=== PATIENT | female | born 1955 | race Two or more races ===

== ENCOUNTER 2018-02-16 21:56 | Emergency (ER) | payer OTHER, MEDICAID ==
[~2018-02-16] VITALS: Ht 167.6 cm; Wt 68.0 kg
[2018-02-16] MEDS ORDERED: LORAZEPAM 0.5 MG TABLET PO ONE (22:30)
[2018-02-16] MEDS ORDERED: IV NORMAL SALINE 1000 ML BAG IV ONE (22:30)
[2018-02-16] MEDS ORDERED: LORAZEPAM 1 MG TABLET ONE (22:43)
[2018-02-16] MEDS ORDERED: LORAZEPAM 0.5 MG TABLET ONE (22:44)
[2018-02-16 22:55] LABS: BASOPHILS % (AUTO) 0.9 % (0.0-2.0); EOSINOPHILS # (AUTO) 0.2 K/uL (0.0-0.7); EOSINOPHILS % (AUTO) 4.6 % (0.0-7.0); HEMATOCRIT 36.7 % (31.2-41.9); HEMOGLOBIN 12.3 g/dL (10.9-14.3); LYMPHOCYTES % (AUTO) 17.8 % (20.5-51.5); MEAN CORPUSCULAR HEMOGLOBIN 30.4 uug (24.7-32.8); MEAN CORPUSCULAR HGB CONC 33 g/dL (32.3-35.6); MEAN CORPUSCULAR VOLUME 90.8 fL (75.5-95.3); MONOCYTES # (AUTO) 0.4 K/uL (2.0-10.0); MONOCYTES % (AUTO) 6.5 % (0.0-11.0); NEUTROPHILS # (AUTO) 3.8 K/uL (1.8-8.9); NEUTROPHILS % (AUTO) 70.2 % (38.5-71.5); PLATELET COUNT (AUTO) 343 K/uL (179-408); RED BLOOD CELL COUNT(AUTO) 4.04 MIL/uL (3.63-4.92); WHITE BLOOD COUNT (AUTO) 5.4 K/uL (3.8-11.8)
[2018-02-16 23:09] LABS: ETHANOL 5 MG/DL (0-0)
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
[2018-02-16 23:30] LABS: ALANINE AMINOTRANSFERASE 20 U/L (14-59); ALKALINE PHOSPHATASE 177 U/L (50-136); ASPARTATE AMINOTRANSFERASE 22 U/L (15-37); BILIRUBIN,DIRECT 0.1 mg/dL (0.0-0.2); BILIRUBIN,TOTAL 0.3 mg/dL (0.2-1.0); CARBON DIOXIDE 27 mmol/L (21-32); CHLORIDE 94 mmol/L (98-107); CREATININE 0.6 mg/dL (0.6-1.3); GLUCOSE 156 mg/dL (74-106); POTASSIUM 3.3 mmol/L (3.5-5.1); TOTAL PROTEIN, SERUM 7.7 g/dL (6.4-8.2); UREA NITROGEN, BLOOD 13 mg/dL (7-18)
[2018-02-16 23:33] LABS: ACETAMINOPHEN < 2.0 ug/mL (10-30)
[2018-02-16 23:39] LABS: MAGNESIUM 1.6 mg/dL (1.8-2.4)
[2018-02-17] MEDS ORDERED: MAGNESIUM SULFATE 1 GM in IV DEXTROSE 5% 50 ML IV ONE ×2
[2018-02-17] MEDS ORDERED: MAGNESIUM SULFATE 1 GM/2 ML VIAL ONE (00:07)
--- NOTE | 2018-02-17 00:55 | NUR ---
PT SLEEPING IN BED. VSS. 1:1 SITTER AT BEDSIDE.
[2018-02-17 01:55] LABS: *BILIRUBIN,URIN NEGATIVE (NEGATIVE); *BLOOD, URINE Trace-intact (NEGATIVE); *CLARITY,URINE CLEAR (CLEAR); *COLOR,URINE YELLOW (YELLOW); *KETONES,URINE 1+ (NEGATIVE); *PROTEIN,URINE NEGATIVE (NEGATIVE); *UROBILINOGEN,URINE 0.2 E.U./dl (NORMAL); LEUKOCYTE ESTERASE ,URINE TRACE (NEGATIVE); NITRITE, URINE NEGATIVE (NEGATIVE); UGLUCOSE NEGATIVE (NEGATIVE)
[2018-02-17 02:10] LABS: *AMPHETAMINE, URINE POSITIVE (NEGATIVE); *BARBITURATE, URINE POSITIVE (NEGATIVE); *CANNABINOID, URINE NEGATIVE (NEGATIVE); *COCCAINE, URINE NEGATIVE (NEGATIVE); *OPIATE, URINE POSITIVE (NEGATIVE); *PHENCYCLIDINE SCREEN,URINE NEGATIVE (NEGATIVE); BACTERIA,URINE NONE SEEN /HPF (NONE SEEN); RBC,URINE 0-3 /HPF (0-3); SQUAMOUS EPITHELIAL CELL,UR FEW /HPF (NONE SEEN); TRANSITIONAL EPI CELLS,URINE FEW /LPF (NONE SEEN); WBC,URINE 0-3 /HPF (0-3)
[2018-02-17 02:11] LABS: MUCUS,URINE FEW /LPF (0-FEW)
--- NOTE | 2018-02-17 03:03 | NUR ---
SPOKE Saundra POWERS FROM [facility]. REQUESTED PT'S CHART TO BE FAXED TO [facility].
--- NOTE | 2018-02-17 03:08 | NUR ---
AWAITING CALL-BACK FROM [facility]'S FACILITY ASSIGNMENT FOR TRANSFER.
--- NOTE | 2018-02-17 04:20 | NUR ---
CALLED [facility] FIND HELPLINE RE PT'S TRANSFER REQUEST. WAS TOLD THE TRANSFER REQUEST IS STILL PENDING AND THEY WILL CALL ONCE THERE IS A CONFIRMATION. AWAITING CALL BACK.
--- NOTE | 2018-02-17 05:25 | NUR ---
SPOKE W/ [facility] FINDER REP RE PT'S TRANSFER STATUS - PT'S STATUS IS STILL PENDING W/ TWO DIFFERENT FACILITIES. AWAITING CALL BACK.
--- NOTE | 2018-02-17 05:45 | NUR ---
PT ASLEEP - AROUSES EASILY. MD AWARE OF PT'S RECENT VS, 170/95, HR 80, RR 18, SPO2 98%.
--- NOTE | 2018-02-17 06:50 | NUR ---
SPOKE W/ ABBEY FROM [facility] RE PT'S ADMISSION.
--- NOTE | 2018-02-17 07:14 | NUR ---
GAVE SHIFT REPORT TO JASPER ORTEGA.
--- NOTE | 2018-02-17 07:51 | NUR ---
[facility] provided for pt. pt eating with good apetite.
--- NOTE | 2018-02-17 08:33 | NUR ---
[facility] called. pt is going to [facility], accepting md is dr. lilly. report number [phone]. eta for transfer 60-90 minutes. called [facility] to give report got disconnected. will call again.
--- NOTE | 2018-02-17 09:47 | NUR ---
ambulance at bedside, called to give report again, was told by the nurse at [facility] that cannot be transfered because [facility] does not have the order fromn accepting physician. called back [facility], was transfered to [facility]. [facility] reconfirmed the transfer. called back [facility] x 3 to give report while ambulance waiting here to transfer the pt. the phone was picked up and disconnected ithout being able to give report. gave comprehensive report to ambulance crew, and provided the phone number for [facility] to call back for report.
--- NOTE | 2018-02-17 09:50 | NUR ---
pt transfered to [facility] via private ambulance in stable condition. pt able to walk in steady gait. er md medically cleared the pt including the vs.
== END 2018-02-17 09:55 | disposition short-term general hospital (02) ==
LOC: ER 21:56
DX: S80.01XA Contusion of right knee, initial encounter (principal); S49.91XA Unspecified injury of right shoulder and upper arm, initial encounter; R45.851 Suicidal ideations; F32.9 Major depressive disorder, single episode, unspecified; I10 Essential (primary) hypertension; F17.200 Nicotine dependence, unspecified, uncomplicated; Z88.8 Allergy status to other drugs, medicaments and biological substances; W01.0XXA Fall on same level from slipping, tripping and stumbling without subsequent striking against object, initial encounter; Y93.89 Activity, other specified; Y92.89 Other specified places as the place of occurrence of the external cause; Y99.8 Other external cause status
CPT/HCPCS: 36415 ×2; 71045; 73030; 73564; 80048; 80076; 80307; 81001; 83735; 83880; 84484; 85025; 93005; 96365; 99285; G0480 ×2; G0481 ×2; J3475; J7060; 70030-TC; A4663; J7030

== ENCOUNTER 2023-02-26 22:56 | Emergency (ER) | payer OTHER, MEDICAID ==
[~2023-02-26] VITALS: Ht 157.5 cm; Wt 42.4 kg
[2023-02-27 00:06] LABS: ABG BASE EXCESS 0.7 mmol/L; ABG PCO2 43.9 mmHg (35.0-45.0); ABG PO2 73.1 mmHg (75.0-100.0); ABG SITE RIGHT RADIAL; ABG TOTAL HEMOGLOBIN 13.3 G/dL (12.0-16.0); COHb 3.8 % (0.5-1.5); O2Hb 89.4 % (94.0-97.0); VENT MODE room air
[2023-02-27 00:37] LABS: BASOPHILS # (AUTO) 0.1 K/UL (0.0-0.2); BASOPHILS % (AUTO) 1.5 % (0.0-2.0); EOSINOPHILS # (AUTO) 0.1 K/uL (0.0-0.7); EOSINOPHILS % (AUTO) 2.3 % (0.0-7.0); HEMATOCRIT 41.8 % (31.2-41.9); HEMOGLOBIN 14.1 g/dL (10.9-14.3); LYMPHOCYTES # (AUTO) 1.7 K/uL (0.8-4.8); LYMPHOCYTES % (AUTO) 34.4 % (20.5-51.5); MEAN CORPUSCULAR HEMOGLOBIN 34.5 uug (24.7-32.8); MEAN CORPUSCULAR HGB CONC 34 g/dL (32.3-35.6); MEAN CORPUSCULAR VOLUME 102.2 fL (75.5-95.3); MONOCYTES # (AUTO) 0.5 K/uL (0.1-1.30); MONOCYTES % (AUTO) 9.4 % (0.0-11.0); NEUTROPHILS # (AUTO) 2.6 K/uL (1.8-8.9); NEUTROPHILS % (AUTO) 52.4 % (38.5-71.5); PLATELET COUNT (AUTO) 349 K/uL (179-408); RED BLOOD CELL COUNT(AUTO) 4.09 MIL/uL (3.63-4.92); RED CELL DISTRIBUTION WIDTH 15.4 % (12.3-17.7); WHITE BLOOD COUNT (AUTO) 4.9 K/uL (3.8-11.8)
[2023-02-27 00:38] LABS: CALCIUM 8.7 mg/dL (8.5-10.1); CARBON DIOXIDE 29 mmol/L (21-32); CHLORIDE 98 mmol/L (98-107); CREATININE 0.7 mg/dL (0.6-1.3); GLUCOSE 78 mg/dL (74-106); POTASSIUM 3.8 mmol/L (3.5-5.1); SODIUM SERUM 137 mmol/L (136-145); UREA NITROGEN, BLOOD 17 mg/dL (7-18)
[2023-02-27 00:40] LABS: DIFFERENTIAL COMMENT 1
[2023-02-27 01:27] LABS: ACETAMINOPHEN < 10.0 ug/mL (10-30); NT-PRO BNP 506 pg/mL (0-125)
[2023-02-27 05:28] LABS: *AMPHETAMINE, URINE POSITIVE (NEGATIVE); *BARBITURATE, URINE NEGATIVE (NEGATIVE); *BENZODIAZEPINE, URINE POSITIVE (NEGATIVE); *CANNABINOID, URINE NEGATIVE (NEGATIVE); *COCCAINE, URINE NEGATIVE (NEGATIVE); *OPIATE, URINE NEGATIVE (NEGATIVE); *PHENCYCLIDINE SCREEN,URINE NEGATIVE (NEGATIVE); FENTANYL, URINE POSITIVE (NEGATIVE)
[2023-02-27] MEDS ORDERED: ASPIRIN 81 MG TAB.CHEW PO ONE (06:30)
[2023-02-27] MEDS ORDERED: hydrALAZINE HCL 20 MG/1 ML VIAL ONE (06:34)
[2023-02-27] MEDS ORDERED: ASPIRIN 325 MG TABLET ONE (06:34)
[2023-02-27] MEDS ORDERED: hydrALAZINE HCL 20 MG/1 ML VIAL IV ONE (06:45)
[2023-02-27] MEDS ORDERED: IV NORMAL SALINE 500 ML BAG IV ONE (07:30)
[2023-02-27] MEDS ORDERED: MAGNESIUM SULFATE 1 GM/2 ML VIAL ONE (07:45)
[2023-02-27] MEDS ORDERED: MAGNESIUM SULFATE/D5W 100 ML IV ONE (07:45)
[2023-02-27] MEDS ORDERED: METOPROLOL TARTRATE 5 MG/5 ML VIAL IVP ONE ×2 (08:39→08:45)
[2023-02-27 08:51] VITALS: BP 141/82
[2023-02-27 09:13] VITALS: O2SAT 98
== END 2023-02-27 09:14 | disposition short-term general hospital (02) ==
LOC: ER 22:58
DX: R41.82 Altered mental status, unspecified (principal); R07.89 Other chest pain; R06.02 Shortness of breath; G92.9 Unspecified toxic encephalopathy; T42.4X5A Adverse effect of benzodiazepines, initial encounter; F10.129 Alcohol abuse with intoxication, unspecified; I10 Essential (primary) hypertension; F17.210 Nicotine dependence, cigarettes, uncomplicated; Z88.8 Allergy status to other drugs, medicaments and biological substances; Y92.89 Other specified places as the place of occurrence of the external cause; Y90.6 Blood alcohol level of 120-199 mg/100 ml
CPT/HCPCS: 80048; 83880; 85025; 84484; 36415; 93005; 71045; 99285; 80299; 80320; 80307; 36600 ×2; 96365; 96375; J0360; J3475; J3490; J7040; A4606; A4663; G0480